=== PATIENT | male | born 1960 | race Caucasian/White ===

== ENCOUNTER 2023-03-31 09:16 | Inpatient (IN) ==
[2023-03-31] MEDS ORDERED: Midazolam 10 mg/10 ml VIAL 1 mg/ml 10 ml VIAL (10 mg) IV SLOW PU ONE (13:37)
[2023-03-31] MEDS ORDERED: fentaNYL 100 mcg/2 ml 50 MCG/ML VIAL IV SLOW PU ONE (13:37)
[2023-03-31] MEDS ORDERED: NS 0.9% 1000 ml BAG 1,000 ML IV SCH (13:45)
[2023-03-31] MEDS ORDERED: Ondansetron 4 mg VIAL 2 MG/ML 2 ml VIAL IV PRN (14:08)
[2023-03-31] MEDS ORDERED: Heparin DRIP 25,000 UNITS BAG 25,000 UNITS/500 ML BAG IV SCH ×2 (14:15→16:28)
[2023-03-31] MEDS ORDERED: VERAPAMIL 2.5 MG/ML 2 ML VIAL ** 5 mg/2 ml ONE (14:39)
[2023-03-31] MEDS ORDERED: nitroGLYCERIN DRIP 25,000 MCG/250 ML BTL ONE (14:39)
[2023-03-31] MEDS ORDERED: Heparin 1,000 UNIT/ML 10 ml (10,000 UNITS) CATHLAB/DIALYSIS ONE ×2 (14:39→14:40)
[2023-03-31] MEDS ORDERED: Heparin 2 UNITS/ML 1000 mls 2,000 ML IV ONE (14:40)
[2023-03-31] MEDS ORDERED: Lidocaine 1% MPF 5 ML VIAL ONE (14:40)
[2023-03-31] MEDS ORDERED: Midazolam 5 mg/5 ml VIAL 1 mg/ml 5 ml VIAL (5 mg) ONE (14:41)
[2023-03-31] MEDS ORDERED: fentaNYL 100 mcg/2 ml 50 MCG/ML VIAL ONE (14:41)
[2023-03-31] MEDS ORDERED: Iohexol 350 (CONTRAST) 200 ML MDV IV ONE (14:41)
[2023-03-31] MEDS ORDERED: Heparin 5000 UNITS/ML 1 mL VIAL IV SCH (15:00)
[2023-03-31] MEDS ORDERED: Heparin DRIP 25,000 UNITS BAG 25,000 UNITS/500 ML BAG ONE (16:20)
[2023-03-31 16:41] LABS: ABS Basophils 0.1 10^3/uL (0.0-0.1); ABS Eosinophils 0.2 10^3/uL (0.0-0.5); ABS Lymphocytes 2.3 10^3/uL (1.0-4.8); ABS Monocytes 0.7 10^3/uL (0.0-1.1); ABS Neutrophils 6.3 10^3/uL (1.5-7.6); ABS Nucleated RBC 0.01 10^3/ul; Eosinophil % 2.1 %; Hematocrit 29.2 % (38-53); Lymphocyte % 24.2 %; Mean Corpuscular Hemoglobin 31.6 pg (27-33); Mean Corpuscular Hgb Conc 34.4 g/dL (31-36); Mean Platelet Volume 8.2 fL (7.5-11.2); Nucleated Red Blood Cells % 0.1 /100 WBC (0.0-0.4); Platelet Count 345 10^3/uL (150-450); Red Blood Count 3.17 10^6/uL (4.06-5.63); Red Cell Distribution Width 15.4 % (12-17); White Blood Count 9.6 10^3/uL (3.6-10.2)
[2023-03-31 16:56] LABS: Creatinine, Serum 0.68 mg/dL (0.67-1.17); eGFR CKD-EPI 104.4 (>60)
[2023-03-31] MEDS ORDERED: Dextrose 50% Syringe 50 ml 25 GM/50 ML SYRINGE IV PUSH PRN (18:08)
[2023-03-31] MEDS: Nicotine PATCH 21 MG/24 HR PATCH TRANSDERM SCH (18:21)
[2023-03-31] MEDS: Pantoprazole VIAL 40 MG VIAL IV SCH (18:22)
[2023-03-31] MEDS ORDERED: Insulin GLARGINE 100 un/ml 10 ml VIAL SUBCUT SCH (21:00)
[2023-04-01] MEDS ORDERED: NS 0.9% 1000 ml BAG 1,000 ML IV SCH (05:45)
[2023-04-01 05:48] LABS: ABS Basophils 0.1 10^3/uL (0.0-0.1); ABS Eosinophils 0.2 10^3/uL (0.0-0.5); ABS Lymphocytes 2.1 10^3/uL (1.0-4.8); ABS Monocytes 0.6 10^3/uL (0.0-1.1); ABS Neutrophils 7.7 10^3/uL (1.5-7.6); ABS Nucleated RBC 0.01 10^3/ul; Eosinophil % 2.2 %; Hematocrit 31.5 % (38-53); Hemoglobin 10.9 g/dL (13.2-16.3); Lymphocyte % 19.6 %; Mean Corpuscular Hemoglobin 31.8 pg (27-33); Mean Corpuscular Hgb Conc 34.7 g/dL (31-36); Mean Corpuscular Volume 91.8 fL (80-97); Mean Platelet Volume 7.7 fL (7.5-11.2); Platelet Count 353 10^3/uL (150-450); Red Blood Count 3.43 10^6/uL (4.06-5.63); Red Cell Distribution Width 15.3 % (12-17); White Blood Count 10.7 10^3/uL (3.6-10.2)
[2023-04-01 06:10] LABS: Calcium 8.8 mg/dL (8.6-10.3); Creatinine, Serum 0.65 mg/dL (0.67-1.17); Potassium 3.9 mmol/L (3.5-5.0); eGFR CKD-EPI 105.9 (>60)
[2023-04-01] MEDS: Nicotine PATCH 21 MG/24 HR PATCH TRANSDERM SCH (07:57)
[2023-04-01] MEDS: Pantoprazole VIAL 40 MG VIAL IV SCH (07:59)
[2023-04-01 08:33] VITALS: BP 125/81
[2023-04-01] MEDS ORDERED: Aspirin EC 81 mg TAB.EC (enteric coated) PO SCH (09:00)
[2023-04-01] MEDS ORDERED: Fluticasone NASAL SPRAY 50MCG 16 gm SPRAY BTL INTRANASAL SCH (09:00)
== END 2023-04-01 09:23 | disposition short-term general hospital (02) | DRG 281 ==
LOC: MEDTELE 13:22
PROVIDERS: ADMIT Internal Medicine; ATTEND Internal Medicine